=== PATIENT | female | born 1950 | race Caucasian/White ===

== ENCOUNTER → 2018-02-09 | Outpatient (CLI) | payer OTHER ==
[~2018-02-09] VITALS: Ht 172.7 cm; Wt 108.4 kg
[~2018-02-09] MED LIST: ATIVAN1 MG PO; DICLOFENAC SODI25 MG PO; IMDUR 30 MG TAB30 M1 PO; LISINOPRIL20 MG PO; METFORMIN HCL500 MG PO; VICTOZA0.6 MG/0.1 SUBQ
--- NOTE | ~2018-02-09 | CATHLAB ---
[facility] [address] [place] [address] INVASIVE PROCEDURE REPORT Name: FRANCINE TORRES Room #: REG Mackenzie#: [id number] Admission: 02/09/18 Attend Phys: Roberto Lopez Discharge: Date of : 46 Date of Service: 02/11/18 1236 Report #: [id number] THIS REPORT FOR: //name// APPROVED REPORT Study performed: 02/09/2018 09:15:42 Patient Details Patient Status: Out-Patient Room #: The patient is a 67 year-old female Event Personnel Roberto Mackenzie Electrician Constructor Supervisor, Laura May RN RN, Chetna Oconnor Procedures Performed Left Heart Cath w/or w/o Coronaries [id number] [place] supervision of conscious sedation Indication Chest pain Procedure Narrative The Right Groin^ was infiltrated with 1% Lidocaine subcutaneous anesthesia. A PINNACLE 4FR Sheath #[id number] sheath was inserted into the RFA^. Coronary angiography was performed using coronary diagnostic catheters. The right coronary system was accessed and visualized with a JR4 catheter. The left coronary system was accessed and visualized with a JL4 catheter. The left ventricle was accessed and visualized with a PIGTAIL catheter. Left ventricular/Aortic Valve gradient assessed via catheter pullback. Left ventriculogram was performed in 30 degree projection. Hemostasis was obtained with manual pressure following sheath removal without any complications. There was no hematoma. Intraoperative Conscious Sedation Sedation start time: 12.35 Case end Time: 1.04 Versed 2 mg Fluoro Time: 3.27 minutes Dose: DAP 4724 cGycm2 558 mGy Contrast Type and Amount: Omnipaque 50 ml Coronary Angiography [facility] [address] [place] [address] INVASIVE PROCEDURE REPORT Name: FRANCINE TORRES Room #: REG CL Mackenzie#: [id number] Admission: 02/09/18 Attend Phys: Roberto Lopez Discharge: Date of : 46 Date of Service: 02/11/18 1236 Report #: [id number] The patient's coronary anatomy is right dominant. Diagnostic Cath Left Main Moderate to large caliber vessel long length bifurcates into left anterior descending left circumflex and is free of high-grade disease LAD Moderate caliber type II vessel which courses quite tortuously in the anterior interventricular sulcus terminating as a small caliber vessel at the apex. He gives her to septal and diagonal branches in its course Diagonal 1 Moderate caliber codominant vessel which courses along the anterolateral wall terminating near the apex of the anterolateral ventricle he has luminal irregularities but no high-grade disease identified Circumflex Moderate caliber vessel which has a hairpin origin which has a 30% blockage. Subsequent to the completion of this turned there is a segment of 60% stenosis as it reconstitutes itself along the lateral aspect of the ventricle and tortuous course OM1 Moderate caliber vessel which has significant deformity proximally. The proximal third has moderate lesions and a focal 60-65% lesion which does not appear to be flow-limiting. It is quite tortuous in its course along the lateral aspect of the ventricle Right Coronary Large-caliber vessel of normal origin has a snow's crook deformity proximally. It gives rise to small RV marginal branch is a courses posteriorly to the crux of the heart giving rise to posterior descending artery. It then terminates as a posterior wall branches and a tortuous posterolateral branch only luminal irregularities are noted R PDA Small to moderate caliber vessel with luminal irregularities present Left Ventriculography The left ventricle is normal in size with normal contractility. The left ventricular ejection fraction is estimated to be 65-70%. Left ventricular wall motion abnormalities are not present. Hemodynamics The aortic pressure is 155/68 mmHg with a mean of 79 mmHg. The left ventricular pressure is 149/12 mmHg with a mean of mmHg. The left ventricular end diastolic pressure is 25 mmHg. There was no gradient across the aortic valve upon pullback. Pullback from the left ventricle to the aorta revealed no gradient across the aortic valve. [facility] [address] [address] INVASIVE PROCEDURE REPORT Name: BRIANFRANCINEIKER SHEPPARD Room #: REG CL Mackenzie#: [id number] Admission: 02/09/18 Attend Phys: Roberto Lopez Discharge: Date of : 46 Date of Service: 02/11/18 1236 Report #: [id number] Conclusion 1. Coronary artery disease moderate single-vessel consisting of the proximal circumflex. Highly tortuous proximal circumflex anatomy noted 2. Abnormal hemodynamics with elevated liver ventricular end-diastolic pressures 3. Normal left ventricular contractility Recommendations Cardiac Risk Reduction Program Aggressive Medical Therapy <ELECTRONICALLY SIGNED> By: Roberto Mackenzie MD 02/11/18 1236 1236 1236 Roberto Mackenzie MD /INF
[2018-02-09 10:21] VITALS: BP 128/51
== END | disposition home or self-care (01) ==
LOC: CATH 06:25
DX: I25.10 Atherosclerotic heart disease of native coronary artery without angina pectoris (principal); I11.0 Hypertensive heart disease with heart failure; I50.1 Left ventricular failure, unspecified; E78.5 Hyperlipidemia, unspecified; E11.9 Type 2 diabetes mellitus without complications; F41.9 Anxiety disorder, unspecified; E66.09 Other obesity due to excess calories; Z90.49 Acquired absence of other specified parts of digestive tract; Z98.84 Bariatric surgery status; Z90.710 Acquired absence of both cervix and uterus; Z98.890 Other specified postprocedural states; Z79.899 Other long term (current) drug therapy; Z82.49 Family history of ischemic heart disease and other diseases of the circulatory system; Z91.040 Latex allergy status

== ENCOUNTER 2018-08-26 13:48 | Inpatient (IN) | payer OTHER ==
[~2018-08-26] VITALS: Ht 175.3 cm; Wt 97.5 kg
--- NOTE | ~2018-08-26 | P ---
[facility] [place] [address] [place] [address] PROCEDURE REPORT Name: FRANCINE TORRES Room #: 207-P ADM IN M.R.#: [id number] Admission: 08/26/18 ������������������ Attend Phys: Flora Larkin Discharge: ������������������ Date of : 46 Report #: [id number] THIS REPORT FOR: //name// CC: Flora Houston PROCEDURE: Pacemaker implantation. PREOPERATIVE DIAGNOSES: 1. Syncope. 2. Sick sinus syndrome. 3. Asystole. HISTORY: The patient is a 68-year-old with history of coronary artery disease and mild aortic stenosis with recent presyncopal symptoms, who wore monitoring manager and had a 10-second pause secondary to sinus arrest with associated syncope. She had an echocardiogram prior to the pacemaker and showed normal LV size and function with mild aortic stenosis. She is here for dual chamber pacemaker implantation. ANESTHESIA: The patient underwent MAC anesthesia, no anesthesia-related complications. DESCRIPTION OF PROCEDURE: The patient underwent informed consent. We discussed the details of the procedure including the risk, which include, but not limited to bleeding, infection, cardiac perforation and pneumothorax. She understood these risks and is willing to proceed. The patient was brought to EP Laboratory in a fasting and sedated state, prepped and draped in a sterile fashion, received IV antibiotics and a venogram showing patency of the left axillary vein. Next, lidocaine was injected below the level of left clavicle. Incision was made, pocket was created over the prepectoral fascia and access was obtained twice to the left axillary vein using the extrathoracic approach with sheaths positioned using the modified Seldinger technique. Next, under fluoroscopy, leads were positioned in right ventricular mid septum and the right atrial appendage both with adequate pacing and sensing thresholds. The leads were sutured to the prepectoral fascia and device was connected. The device was placed in the pocket. The pocket was irrigated with vancomycin. The pocket was closed in 2 layers using 2-0 for the deep layer, 3-0 for the mid layer and surgical glue for the outer skin layer. The patient awoke neurologically and hemodynamically intact. No complications and no significant bleeding. The implanted pacemaker was a [employer], model #2272 MRI compatible device, serial #[id number]. The atrial lead was a [employer] model #2088TC 52 cm, serial #[id number] with a P-wave of 1.6 millivolts, pacing impedance of 440 ohms and the pacing threshold of 1.25 volts at 0.4 milliseconds. The RV lead was a [employer] model #2088 58 cm, serial #[id number] with a R-wave of 11.8 millivolts, pacing impedance of 530 ohms and [facility] [address] [place] [address] PROCEDURE REPORT Name: FRANCINE TORRES Room #: 207-P [facility] IN M.R.#: [id number] Admission: 08/26/18 ������������������ Attend Phys: Flora Larkin Discharge: ������������������ Date of : 46 Report #: [id number] the pacing threshold of 1 volt at 0.4 milliseconds. The device was programmed to the DDDR 60-130 mode. CONCLUSIONS: 1. Successful dual-chamber pacemaker implantation. 2. Satisfactory atrial and ventricular pacing and sensing thresholds. ��������������������������������������������� ���������������������������������������� By: ��������������������������������������������� 1635 0138 Blair Mcbride MD /nt
[2018-08-26 14:00] VITALS: BP 154/86
[2018-08-26 15:10] VITALS: BP 154/86
--- NOTE | 2018-08-26 15:10 | 2DMMODE ---
[facility] [place] [address] 2 D/M-MODE ECHOCARDIOGRAM Name: FRANCINE TORRES Room #: PRE [facility]..#: [id number] ������������� Admission: ������������� Attend Phys: Discharge: ��� ������������� ��� Date of : 46 Date of Service: 08/26/18 1510 �� Report #: [id number] �������� ��������������������������������������������[id number] THIS REPORT FOR: //name// APPROVED REPORT Study performed: 08/26/2018 14:40:13 EXAM: Comprehensive 2D, Doppler, and color-flow Echocardiogram Patient Location: ER Room #: 9 BSA: 2.21 HR: 59 bpm BP: 132/69 mmHg Other Information Study Quality: Technically Difficult Technically limited study due to body habitus, inability to position patient, broken ribs. Indications Syncope Changed to limited echo with doppler per. Dr. Mcbride 2D Dimensions IVSd: 10.72 (7-11mm) LVOT Diam: 18.25 (18-24mm) LVDd: 39.31 mm PWd: 10.46 (7-11mm) LVDs: 24.46 (25-40mm) Aortic Root: 24.98 mm Aortic Valve AoV Peak Jack.: 2.21 m/s AO Peak Gr.: 19.59 mmHg LVOT Max P.19 mmHg AO Mean Gr.: 9.88 mmHg AO V2 Mean: 1.41 m/s LVOT Max V: 1.02 m/s AO V2 VTI: 48.78 cm AINSLEY Vmax: 1.21 cm2 Left Ventricle The left ventricle is normal size. Borderline concentric left ventricular hypertrophy. The left ventricular systolic function is normal. The left ventricular ejection fraction is within the normal range. LVEF is 55%. [facility] [address] [address] 2 D/M-MODE ECHOCARDIOGRAM Name: FRANCINE TORRES Room #: [facility].#: [id number] ������������� Admission: ������������� Attend Phys: Discharge: ��� ������������� ��� Date of : 46 Date of Service: 08/26/18 1510 �� Report #: [id number] �������� ��������������������������������������������[id number] Right Ventricle The right ventricle is normal size. The right ventricular systolic function is normal. Aortic Valve Aortic valve is moderately calcified. No aortic regurgitation is present. There is mild to moderate valvular aortic stenosis. Calculated aortic valve area is 1.2 cm2 with maximum pressure gradient of 19.6 mmHg and mean pressure gradient of 10 mmHg. Mitral Valve Mild mitral annular calcification. There is no mitral valve regurgitation noted. Tricuspid Valve The tricuspid valve is normal in structure. Great Vessels The aortic root is normal in size. Pericardium There is no pericardial effusion. <Conclusion> The left ventricle is normal size. Borderline concentric left ventricular hypertrophy. The left ventricular systolic function is normal. The left ventricular ejection fraction is within the normal range. LVEF is 55%. Aortic valve is moderately calcified. There is mild to moderate valvular aortic stenosis. Calculated aortic valve area is 1.2 cm2 with maximum pressure gradient of 19.6 mmHg and mean pressure gradient of 10 mmHg. There is no pericardial effusion. ��������������������������������������������� <ELECTRONICALLY SIGNED> ���������������������������������������� By: Blair Mcbride MD ��������������������������������������������� 08/26/181509 09 09 Blair Mcbride MD /INF
[2018-08-26 15:58] LABS: ABSOLUTE NEUTROPHILS 3.5 thou/uL (1.4-8.2); BASOPHILS 0.7 % (0.0-2.0); EOSINOPHILS 2.1 % (0.0-3.0); HEMATOCRIT 39.3 % (37.0-47.0); HEMOGLOBIN 13.1 gm/dL (12.0-15.0); MCH 32.1 pg (26.0-34.0); MCHC 33.3 g/dL (28.0-37.0); MCV 96.5 fL (80.0-100.0); MONOCYTES 7.8 % (1.0-8.0); PLATELET COUNT 152 thou/uL (150-400); POLYS 62.4 % (36.0-66.0); RBC 4.08 mil/uL (4.20-5.00); RDW 13.6 % (10.5-14.5); WBC 5.5 thou/uL (4.0-11.0)
[2018-08-26 16:07] LABS: CALCIUM 8.7 mg/dL (8.5-10.1); CREATININE 0.8 mg/dL (0.6-1.0); POTASSIUM 4.1 mmol/L (3.5-5.1)
[2018-08-26 16:12] LABS: PROTIME 10.9 Seconds (9.3-11.4)
--- NOTE | 2018-08-26 17:59 | NUR ---
PATIENT ADMITTED TO ROOM AT THIS TIME. SHE IS ALERT ORIENTED X4. INCISION TO CHEST IS NOT BLEEDING. OPEN TO AIR. STATES SHE IS COLD AND WARM BLANKET OFFERED. WILL CONT WITH PLAN OF CARE.
[2018-08-26] MEDS ORDERED: CRESTOR10 MG PO (19:42)
[2018-08-26] MEDS ORDERED: PLAVIX 75 MG TA75 M1 PO (19:43)
[2018-08-26 20:00] VITALS: BP 161/72
[2018-08-27] VITALS: BP 117/42
[2018-08-27 03:51] VITALS: BP 92/50
--- NOTE | 2018-08-27 05:57 | NUR ---
ASSESSMENT DOCUMENTED.PT BEEN RESTING IN NO ACUTE DISTRESS.A/OX4.S/P PACEMAKER PLACEMENT.UP TO BSC COMMOND WITH SBA.IMMOBILIZER IN PLACE.INCISIONS TO LEFT INTACT,WITH SOME BRUISING.N/V AT THE BEGINNING OF THE SHIFT,NAUSEA MEDS AND GAS MEDS GIVEN WITH COMPLETE RELIEF.NO OTHER CONCERNS VOICED AT THIS TIME.POC IS TO HAVE CX RAY THIS AM THEN POSSIBLE DISCHARGE TO HOME.
[2018-08-27 05:58] LABS: ABSOLUTE NEUTROPHILS 6.6 thou/uL (1.4-8.2); BASOPHILS 0.2 % (0.0-2.0); EOSINOPHILS 0.6 % (0.0-3.0); HEMATOCRIT 38.8 % (37.0-47.0); HEMOGLOBIN 12.9 gm/dL (12.0-15.0); LYMPHOCYTES 15.4 % (24.0-44.0); MCH 32.2 pg (26.0-34.0); MCHC 33.3 g/dL (28.0-37.0); MCV 96.6 fL (80.0-100.0); MONOCYTES 7.8 % (1.0-8.0); PLATELET COUNT 149 thou/uL (150-400); RBC 4.02 mil/uL (4.20-5.00); RDW 13.3 % (10.5-14.5); WBC 8.7 thou/uL (4.0-11.0)
[2018-08-27 06:11] LABS: CREATININE 0.9 mg/dL (0.6-1.0); MAGNESIUM 1.8 mg/dL (1.8-2.4); POTASSIUM 4.8 mmol/L (3.5-5.1)
[2018-08-27 08:41] VITALS: BP 138/46
[2018-08-27 10:20] VITALS: BP 138/46
--- NOTE | 2018-08-27 10:56 | NUR ---
PATIENT CARE ASSUMED, ASSESSMENT CHARTED, VSS, ALERT AND ORIENTED, UPPER LEFT CHEST PACEMAKER INCISION, DRY AND WELL APPROXIMATED. PATIENT DISCHARGED TO HOME. DISCHARGE INSTRUCTIONS DISCUSSED, PATIENT STATES UNDERSTANDING.
--- NOTE | 2018-08-27 11:03 | EKG ---
[address] [place] [address] ELECTROCARDIOGRAM REPORT Name: FRANCINE TORRES Room #: 207-P ADM IN M.R.#: [id number] ������������������ Admission: 08/26/18 ������������������ Attend Phys: Flora Larkin Discharge: ������������������ Date of : 46 Report #: [id number] ����������������������������������������������������������������� [id number] THIS REPORT FOR: //name// [facility] ED Test Date: 2018-08-26 Test Time: 14:09:47 Pat Name: FRANCINE TORRES Department: Room: 207 P Gender: F Run Lead: NINO : 1950 Requested By: Carla Ghosh Order Number: [id number] MD: Raheem Dee Measurements Intervals [place] Rate: 52 P: 34 NH: 203 QRS: 54 QRSD: 96 T: 38 QT: 402 QTc: 374 Interpretive Statements Sinus rhythm Ventricular premature complex Compared to ECG 02/25/2004 17:47:39 Ventricular premature complex(es) now present Electronically Signed On 08-27-2018 11:03:10 CDT by Raheem Dee [email or web address] ��������������������������������������������� <ELECTRONICALLY SIGNED> ���������������������������������������� By: Raheem Dee MD ��������������������������������������������� 08/27/18 1103 1409 1409 MD YOKO Narayan
--- NOTE | 2018-08-28 09:08 | D ---
[facility] [place] [address] DISCHARGE SUMMARY Name: FRANCINE TORRES Room #: 207-P [facility] IN M.R.#: [id number] Admission: 08/26/18 ������������������ Attend Phys: Flora Larkin Discharge: 08/27/18 ������������������ Date of : 46 Report #: [id number] THIS REPORT FOR: //name// CC: Flora Houston DATE OF SERVICE: 08/27/2018 FINAL DIAGNOSES: 1. Syncope/sick sinus syndrome. 2. Status post pacemaker insertion. 3. Coronary artery disease. 4. Diabetes mellitus. 5. Hypertension. 6. Hypercholesterolemia. HOSPITAL COURSE: The patient presented with syncope, commuter pilot revealed a 10-second pause with asystole. She underwent insertion of a permanent pacemaker by Dr. Mcbride. She remained stable overnight. She offers no complaints of angina or dyspnea. She is stable for discharge. Instructions regarding her pacemaker insertion have been given. FINAL DISPOSITION: Continue with Crestor 10 mg daily, Plavix, lisinopril 40 mg, metformin, Victoza and isosorbide. She is scheduled for followup appointments. ��������������������������������������������� <ELECTRONICALLY SIGNED> ���������������������������������������� By: Raheem Dee MD ��������������������������������������������� 08/28/18 0908 0955 1221 Raheem Dee MD /nt
== END 2018-08-27 11:46 | disposition home or self-care (01) | DRG 242 ==
LOC: ER 13:48 → EROBS 14:40 → 2N 18:04 → ENTRNSPT 08-27 11:12 → 2N 08-27 11:46
PROVIDERS: Nurse Practitioner; Student in an Organized Health Care Education/Training Program; ADMIT Hospitalist
DX: I49.5 Sick sinus syndrome (principal); I46.9 Cardiac arrest, cause unspecified; I10 Essential (primary) hypertension; E78.5 Hyperlipidemia, unspecified; E11.9 Type 2 diabetes mellitus without complications; F41.9 Anxiety disorder, unspecified; E66.9 Obesity, unspecified; Z96.651 Presence of right artificial knee joint; I49.9 Cardiac arrhythmia, unspecified; I25.10 Atherosclerotic heart disease of native coronary artery without angina pectoris; I35.0 Nonrheumatic aortic (valve) stenosis; I49.3 Ventricular premature depolarization; E78.00 Pure hypercholesterolemia, unspecified; K58.9 Irritable bowel syndrome, unspecified; Z68.31 Body mass index [BMI] 31.0-31.9, adult; Z90.49 Acquired absence of other specified parts of digestive tract; Z95.1 Presence of aortocoronary bypass graft; Z90.710 Acquired absence of both cervix and uterus; Z91.040 Latex allergy status; Z79.899 Other long term (current) drug therapy
CPT/HCPCS: 10081; 62110; 62900; 70005

== ENCOUNTER → 2018-09-21 | Outpatient (CLI) | payer OTHER ==
[~2018-09-21] MED LIST changes: +CRESTOR10 MG PO; +PLAVIX 75 MG TA75 M1 PO
== END ==
LOC: ULTRA 12:50
DX: I65.23 Occlusion and stenosis of bilateral carotid arteries (principal)

== ENCOUNTER → 2018-12-20 | Outpatient (CLI) | payer OTHER ==
[~2018-12-20] MED LIST changes: +CIPRO500 M1 PO; +METRONIDAZOLE500 M4 PO
[2018-12-20 13:18] LABS: ALBUMIN 3.4 g/dL (3.4-5.0); CALCIUM 9.5 mg/dL (8.5-10.1); POTASSIUM 4.7 mmol/L (3.5-5.1); TOTAL BILIRUBIN 0.6 mg/dL (<0.1-1.0); TOTAL PROTEIN 6.2 g/dL (6.4-8.2)
== END ==
LOC: MRI 12:23
PROVIDERS: Psychiatry & Neurology Neurology
DX: I65.21 Occlusion and stenosis of right carotid artery (principal)

== ENCOUNTER → 2018-12-28 | Outpatient (CLI) | payer OTHER | LOC: MRI 06:48 | DX: S43.431A Superior glenoid labrum lesion of right shoulder, initial encounter (principal); M19.011 Primary osteoarthritis, right shoulder; M25.411 Effusion, right shoulder; M75.91 Shoulder lesion, unspecified, right shoulder; X58.XXXA Exposure to other specified factors, initial encounter; Y93.89 Activity, other specified; Y92.89 Other specified places as the place of occurrence of the external cause; Y99.8 Other external cause status ==

== ENCOUNTER 2019-01-18 12:35 | Inpatient (IN) | payer OTHER ==
[~2019-01-18] VITALS: Ht 172.7 cm; Wt 109.8 kg
--- NOTE | ~2019-01-18 | D ---
[facility] [address] DISCHARGE SUMMARY Name: FRANCINE TORRES Yan Room #: 433-I [facility].#: [id number] Admission: 01/18/19 Attend Phys: Aime Houston MD Discharge: 01/22/19 Date of : 46 Report #: [id number] THIS REPORT FOR: //name// CC: Brett Guerra DATE OF SERVICE: 01/22/2019 SUMMARY OF HISTORY AND PHYSICAL: The patient had lower abdominal pain on 01/05 and was diagnosed as having diverticulitis/colitis in an Emergency Room visit at an outside hospital. She took metronidazole 500 mg 4 times a day for 10 days without improvement in her symptoms. She presented to my office with a steady increasing, chronic, persistent pain in the left lower quadrant and the inability to pass stool. Because of her ongoing pain and inability to pass stools, admission for complete evaluation and fluid replacement with IV fluids and IV medications was indicated. SUMMARY OF HOSPITAL COURSE: She was admitted and found to have acute diverticulitis and colitis on CT scanning of her abdomen and pelvis on admission. She was seen in GI consultation, and clear liquids with bowel rest and intravenous ciprofloxacin as well as intravenous metronidazole were recommended. Her inability to have bowel movement was felt to be caused by the colon narrowing caused from the colitis. She slowly improved and after the third day began to have bowel movements. The next day, she was able to tolerate a regular diet and discharge was arranged. On admission, her verapamil was discontinued because it was a potential contributor to her severe constipation. She reports that she began to have recurrence of dizziness that had been absent since her neurologist started her on verapamil about a month ago. Her blood sugars were only mildly elevated in the hospital. The day before discharge, she had several large bowel movements and refused to take the scheduled MiraLax. However, when Dr. Manjarrez came to see her the next day, he recommended that she continue taking some MiraLax every day to keep her bowel movements coming easily, and she agreed. Her Plavix was resumed in the hospital. LABORATORY DATA: Her creatinine remained at 0.9 and 0.6. Her albumin was 2.5 after rehydration, qualifying for severe malnutrition. CRP was elevated at 58.7 on admission and went up to 97 the day of discharge. Sed rate was 25 on admission and 55 at discharge. Hemoglobin A1c was 7.1. [address] [address] DISCHARGE SUMMARY Name: FRANCINE TORRES Room #: 433-I [facility].#: [id number] Admission: 01/18/19 Attend Phys: Aime Houston MD Discharge: 01/22/19 Date of : 46 Report #: [id number] WBCs were 9.6 on admission and dropped to 4.1 thousand at discharge. Hemoglobin was 12.5 on admission and stable at 10.6 at discharge. There were 77.7% neutrophils present on admission. IMAGING: CT scan of the abdomen and pelvis was most notable for the presence of diverticulitis and generalized colitis, most marked in the ascending colon. Also noted was diffuse osteopenia with severe degenerative changes of the thoracolumbar spine and age indeterminate compression fractures with koxukuqv-qo-zglvgn central canal stenosis at L4-L5. A previous gastric bypass surgery was noted. There were age indeterminate right lateral and posterior rib fractures. DISCHARGE DIAGNOSES: 1. Colitis and diverticulitis, either recurrent or incompletely treated from previous episode on 01/05. 2. Dehydration. 3. Criteria met for severe malnutrition. 4. CT scanning showed qwiyargb-tr-aozzpf central canal stenosis at L4-L5. 5. Multiple compression fractures of the T9 through T11 vertebral bodies. 6. Old rib fractures. 7. Changes of a gastric bypass surgery. 8. Dizziness, improved significantly with the addition of verapamil several weeks ago by her neurologist. 9. Migraine headaches, improved significantly with the addition of Depakote by her neurologist several weeks ago. 10. Type 2 diabetes. 11. Hyperlipidemia. 12. On clopidogrel for coronary artery disease. 13. Hypertension. 14. Diffuse severe arthritis. 15. S/P permanent pacemaker placement for sick sinus syndrome on 09/25/2018. PLAN: The patient is returning is returning home on an as tolerated diet. Cipro 500 mg twice daily for 10 days and metronidazole 500 mg 4 times daily for 10 days to complete her course for treatment of the colitis. She is to follow up with Dr. Manjarrez in 1 to 2 weeks. She is to have a colonoscopy in 4 to 6 weeks and to discontinue her Plavix 5 days or longer beforehand. She is to continue MiraLax, at least some every day, to keep her bowels moving. [address] [address] DISCHARGE SUMMARY Name: FRANCINE TORRES Room #: 433-I [facility].#: [id number] Admission: 01/18/19 Attend Phys: Aime Houston MD Discharge: 01/22/19 Date of : 46 Report #: [id number] Other than that, her home medications are to remain unchanged from what they were on admission. By: [id number] 2256 Aime Houston MD /marija
[~2019-01-18 12:35] MED LIST changes: -CIPRO500 M1 PO; -METRONIDAZOLE500 M4 PO
--- NOTE | 2019-01-18 13:05 | NUR ---
PT ARRIVED FROM DR SALGADO'S OFFICE ALER XS 4. AT6 THIS TIME.
[2019-01-18 13:28] VITALS: BP 100/49
--- NOTE | 2019-01-18 13:47 | NUR ---
CALLED DR SALGADO FOR GI CONSULT HE IS WITH PATIENT WILL RETURN CALL IS WITH PATIENT. PT IS NPO, WILL HAVE KUB. PT ALERT XS 4 WILL HAVE IV PLACED BY IV NURSE. AT BEDSIDE.
[2019-01-18 14:17] LABS: ABSOLUTE NEUTROPHILS 7.4 thou/uL (1.4-8.2); BASOPHILS 0.4 % (0.0-2.0); EOSINOPHILS 0.7 % (0.0-3.0); HEMATOCRIT 38.5 % (37.0-47.0); HEMOGLOBIN 12.5 gm/dL (12.0-15.0); LYMPHOCYTES 11.4 % (24.0-44.0); MCHC 32.5 g/dL (28.0-37.0); MCV 98.6 fL (80.0-100.0); MONOCYTES 9.8 % (1.0-8.0); PLATELET COUNT 182 thou/uL (150-400); POLYS 77.7 % (36.0-66.0); RBC 3.91 mil/uL (4.20-5.00); WBC 9.6 thou/uL (4.0-11.0)
[2019-01-18 14:37] LABS: ALBUMIN 3.1 g/dL (3.4-5.0); CALCIUM 9.1 mg/dL (8.5-10.1); CREATININE 0.9 mg/dL (0.6-1.0); POTASSIUM 4.5 mmol/L (3.5-5.1); TOTAL BILIRUBIN 0.6 mg/dL (<0.1-1.0); TOTAL PROTEIN 6.5 g/dL (6.4-8.2)
[2019-01-18 17:14] VITALS: BP 139/68
[2019-01-18 20:26] VITALS: BP 96/30
[2019-01-19 03:06] VITALS: BP 122/46
--- NOTE | 2019-01-19 03:58 | NUR ---
Assumed pt care at 1900.A/OX4,VSS. Up with SBA to bathroom,c/o cramping abd pain and right upper arm especially with movement medicated per EMAR with relief reported. Dr. Houston rounded on pt at HS orders implemented. Fall precautions in place and pt calling appropriately. IVF infusing without problems. Pt resting quietly with no distress will continue to monitor pt.
[2019-01-19 05:22] LABS: ABSOLUTE NEUTROPHILS 6.1 thou/uL (1.4-8.2); BASOPHILS 0.6 % (0.0-2.0); EOSINOPHILS 1.7 % (0.0-3.0); HEMATOCRIT 32.5 % (37.0-47.0); HEMOGLOBIN 10.6 gm/dL (12.0-15.0); LYMPHOCYTES 10.6 % (24.0-44.0); MCH 32.3 pg (26.0-34.0); MCHC 32.6 g/dL (28.0-37.0); MONOCYTES 11.9 % (1.0-8.0); PLATELET COUNT 142 thou/uL (150-400); POLYS 75.2 % (36.0-66.0); RBC 3.28 mil/uL (4.20-5.00); RDW 13.9 % (10.5-14.5); WBC 8.1 thou/uL (4.0-11.0)
[2019-01-19 05:35] LABS: ALBUMIN 2.5 g/dL (3.4-5.0); CALCIUM 8.2 mg/dL (8.5-10.1); CREATININE 0.8 mg/dL (0.6-1.0); POTASSIUM 4.2 mmol/L (3.5-5.1); TOTAL BILIRUBIN 0.7 mg/dL (<0.1-1.0); TOTAL PROTEIN 5.6 g/dL (6.4-8.2)
[2019-01-19 07:09] LABS: GLYCOHEMOGLOBIN (HGB A1C) 7.1 % (4.8-5.6)
[2019-01-19 07:26] VITALS: BP 127/44
--- NOTE | 2019-01-19 16:15 | NUR ---
ASSESSMENT-PT LIVES AT HOME WITH HER WHO IS 2 YRS OLDER THAN SHE. THEY LIVE IN A HANDICAPPED ACCESSIBLE HOME. THEY HAVE A WALK IN TUB AND PT WALKS ON HER OWN. THEY BOTH DRIVE. THEY HAVE A SON THAT LIVES 3 TENTHS OF A MILE FROM THEM. FOLLOWING TO ASSIST WITH DC PLANNING.
[2019-01-19 17:53] VITALS: BP 140/68
[2019-01-19 18:08] VITALS: BP 128/74
[2019-01-19 18:58] VITALS: BP 133/71
--- NOTE | 2019-01-19 19:52 | NUR ---
ASSUMED CARE OF PATIENT AT 0715, PATIENT ALERT AND ORIENTED X 4. PATIENT UP WITH ASSIST X 1 TO BATHROOM. PATIENT DENIES PAIN THIS AM, BUT C/O PAIN WITH ABDOMEN THIS AFTERNOON. NEW ORDER FOR TYLENOL 650MG PO GIVEN WITH COMPLETE RELIEF. PACEMAKER PLACED IN AUGUST. PATIENT IS A FALL RISK, FELL 4 WEEKS AGO, RIGHT HUMERUS BROKEN, SLING NOT IN PLACE. NO BM TODAY, LOTS OF GAS, RECEIVED MIRALAX THIS AM. PATIENT HAS RIGHT FOREARM IV WITH NS AT 80CC/HR, PATIENT STARTED FLAGYL AND CIPRO IV THIS AFTERNOON. WILL CONTINUE TO MONITOR.
--- NOTE | 2019-01-20 04:38 | NUR ---
ASSUMED CARE OF PT @1900 PT ASSESSED AT START OF SHIFT. A&OX4 DENIES PAIN DURING ASSESSMENT WAS LATER GIVEN HYDROCODONEX1 AFTERMIDNIGHT. UP WITH SBA TO THE BR. NEW IV INSERTED 22G IN RT WRIST. OLD IV WAS SORE. PT STILL ON CLEAR LIQUID AND LAZARUS IT WELL. FALL PREC INPLACE AND WILL CONT WITH POC TILL EOS.
[2019-01-20 05:30] VITALS: BP 125/58
[2019-01-20 15:54] VITALS: BP 146/51
--- NOTE | 2019-01-20 19:27 | NUR ---
ASSUMED CARE OF PATIENT AT 0715, PATIENT ALERT AND ORIENTED X 4. PATIENT UP WITH SBA TO BSC. PATIENT C/O PAIN WITH ABDOMEN AREA, RECEIVED HYDROCODONE 1 TABLET AND TYLENOL 650 MG X 1 THIS SHIFT. PATIENT CONTINUES TO C/O CONSTIPATION, GI SAW THE PATIENT AND ORDERED COLACE BOMB, BUT PATIENT STATES SHE IS UNABLE TO HOLD SOLUTION IN, THIS RN NOTIFIED DR REIS OF PATIENT NOT TAKING THE ENEMA, SHE STATED THE PATIENT TOLD HER THAT WELL, NEW ORDER FOR BISACODYL SUPP. ORDERED AND MIRALAX Q6HRS SCHEDULED. PATIENT HAS RIGHT HAND IV WITH NS AT 80CC/HR, RECEIVED 2 IV ANTIBIOTICS THIS SHIFT. PATIENT WANTED TO WAIT ON BISACODYL UNTIL AFTER MIRALAX WORKS. WILL CONTINUE TO MONITOR.
[2019-01-20 19:45] VITALS: BP 116/42
--- NOTE | 2019-01-21 07:28 | NUR ---
PATIENT ALERT AND ORIENTED X4. UP TO BSC W/O ASSIST. EXPLAINED TO PATIENT NOT TO GO TO THE BATHROOM BY HERSELF. IVF INFUSING W/O COMPLICATION ALONG WITH IVPB'S. DENIES PAIN. STOOL SAMPLE SENT THIS AM. PATIENT REFUSED SUPPOSITORY, HOWEVER, SHE IS TAKING MIRILAX SCHEDULED PO AND HAD A SMALL BM LAST NIGHT. ALSO HAD LIQUID STOOL - GREEN/BROWN IN COLOR. WILL MONITOR.
[2019-01-21 08:23] VITALS: BP 144/56
--- NOTE | 2019-01-21 13:03 | NUR ---
PT A&OX4. IV PLACED IN R FA INFUSING CONT FLUIDS / ANTIBIOTICS W/O COMPS. AMBULATES WITH STAND BY ASSIST. TOLERATING CLEARS, REPORTS NO N/V. PT ASKING FOR FULL LIQUID DIET. DAUGHTER VISITING AT THIS TIME. WILL CONT POC.
[2019-01-21 17:14] VITALS: BP 130/64
[2019-01-21 19:35] VITALS: BP 133/68
[2019-01-22 03:10] VITALS: BP 129/60
--- NOTE | 2019-01-22 04:08 | NUR ---
PATIENT ALERT AND ORIENTED X4. MEDICATED FOR HEADACHE WITH GOOD RESULTS. IVF INFUSING W/O COMPLICATION. REFUSED MIRILAX. BS MONITORED PER ORDER. COOPERATIVE WITH CARE. RESTING QUIETLY. WILL MONITOR.
[2019-01-22 05:30] LABS: HEMATOCRIT 32.1 % (37.0-47.0); HEMOGLOBIN 10.6 gm/dL (12.0-15.0); MCH 32.3 pg (26.0-34.0); MCHC 32.9 g/dL (28.0-37.0); RBC 3.28 mil/uL (4.20-5.00); RDW 13.6 % (10.5-14.5); WBC 4.1 thou/uL (4.0-11.0)
[2019-01-22 05:41] LABS: CREATININE 0.6 mg/dL (0.6-1.0); POTASSIUM 4.1 mmol/L (3.5-5.1)
[2019-01-22 08:33] VITALS: BP 150/77
[2019-01-22] MEDS ORDERED: CIPRO500 M1 PO (12:55)
[2019-01-22] MEDS ORDERED: METRONIDAZOLE500 M4 PO (13:03)
--- NOTE | 2019-01-22 13:21 | NUR ---
PATIENT LEFT UNIT FOR PRE-OP AT 1300 APPROX. PT TO HAVE APPENDECTOMY.
[2019-01-22 15:07] VITALS: BP 150/77
--- NOTE | 2019-01-22 15:56 | NUR ---
AT 15:20 PATIENT DISCHARGED AT 15:20. IV ACSESS DCD PT W/O PAIN OR RESP DISTRESS AT DISCHARGE. DISCHARGE PAERS GONE OVER WITH PATIENT SIGNED COPY IN CHART. DR SALGADO CALLED RX'S TO PHARMACY. ALL BELONGINGS PACKED AND SENT WITH PATIENT. TO DRIVE HOME.
[2019-01-22 16:01] VITALS: BP 150/77
--- NOTE | 2019-01-22 21:40 | H ---
[facility] [place] [address] HISTORY AND PHYSICAL Name: FRANCINE TORRES Yan Room #: 433-I [facility] IN ..#: [id number] Admission: 01/18/19 Attend Phys: Aime Houston MD Discharge: 01/22/19 Date of : 46 Report #: [id number] THIS REPORT FOR: //name// CC: Aime Houston DATE OF SERVICE: 01/18/2019 CHIEF COMPLAINT: Severe unremitting left lower quadrant abdominal pain and equally severe and unremitting constipation. HISTORY OF PRESENT ILLNESS: The patient relates her current problems as beginning about 12/30/2018 when she went to the [facility] Emergency Room. Today, she told me that her chronic constipation had started to become worse leading up to the ER visit and continued afterwards "they should have admitted me and kept me at that time, but they did not." However, the record for that Emergency Room visit (copy is in the paper chart) that she came to the hospital because of pain around the umbilicus and cramping and multiple watery DIARRHEA stools. She reported taking 1 amoxicillin that she had left over the morning before that ER visit, but no other antibiotics. On that visit, a CT scan was remarkable for mild wall thickening of the proximal sigmoid colon suggesting inflammatory or infectious colitis. Specifically mentioned that there was no evidence of diverticulitis, nor ischemic colitis. The more proximal colon was mildly distended, suggesting mild obstructive changes. Laboratory data was remarkable for mildly elevated white count of 11.9 thousand with a very minimal left shift of 78% neutrophils, and a negative stool for C. diff. Stool for hidden blood was positive. She was reassured after getting 2 liters of IV fluids for her low blood pressure and Zofran and morphine. She was feeling better and discharged on oral metronidazole and Zofran. She completed her course of 500 mg of metronidazole 4 times a day about 4 days ago. She now reports that the entire time she has had more difficulty with constipation and her pain is in the left lower quadrant area. She has a long history of irritable bowel syndrome that is constipation predominant. She ordinarily has to sit on the toilet stool 3 hours or 4 hours to have a bowel movement, which will be needed again for several days. However, now she is having to sit on the toilet stool for 4 or 5 hours at a time with cramping discomfort in the left lower quadrant area before she has a very small thick pasty character like stool. She sits on the toilet stool for so long. She gets cramps and weakness in her legs and has to stand up and stretch her legs out before sitting back down to try to pass a bowel movement. The stools "squared out like toothpaste and thin liquids or paste" and she reports that 6 months ago it was normal semi formed stool. IMPORTANT ARE FOLLOWING MEDICATION CHANGES THAT ARE RECENT: She has been taking more hydrocodone since she sustained a complex nondisplaced fracture of her [facility] [address] [place] [address] HISTORY AND PHYSICAL Name: FRANCINE TORRES Room #: 433-I [facility] IN ..#: [id number] Admission: 01/18/19 Attend Phys: Aime Houston MD Discharge: 01/22/19 Date of : 46 Report #: [id number] right upper humerus and partial rotator cuff tear on 12/16/2018. About 2 weeks ago, her neurologist added verapamil and Depakote ER 250 mg at bedtime for migraine headaches. She has attempted to use Linzess 72 mcg strength one daily for 3 days in a row late last week without success, she then tried metoclopramide 10 mg several times daily and most recently a bottle of magnesium citrate -- all without much success. She presented to the office today tired and chronic consistent pain in the left lower quadrant. She says in tears " desiree and Omayra both of colon cancer that started like this." Her last colonoscopy was about [address] Crowley in [place], [place] she reports. The results were unremarkable and there were no colon polyps. An EGD was done more than 10 years ago. She had gastric bypass surgery for weight loss in 2011, after a failed gastric lap band. OTHER SIGNIFICANT SURGERIES: Appendectomy, cholecystectomy, right total knee, tonsillectomy and hysterectomy. On 08/26/2018, a pacemaker was placed for sick sinus syndrome. Cardiac catheterization on 02/09/2018 gave the diagnosis of coronary artery disease. On 08/26/2018, monitoring tech revealed 10 second pause with asystole and a pacemaker was place here at [facility]. CURRENT MEDICATIONS: Rosuvastatin 10 mg in the evening, clopidogrel 75 mg in the morning, lorazepam 1 mg in the evening, lisinopril 40 mg 1 tablet in the morning, metformin 500 mg 2 tablets at bedtime, diclofenac 50 mg twice daily, Victoza 1.25 mg in the morning daily, isosorbide mononitrate 1 tablet in the morning, verapamil, unknown dose at bedtime, Linzess 72 mcg daily recently. Depakote 250 mg at bedtime. She takes iron, magnesium, 10,000 units of vitamin D, vitamin B, stool softener and CoQ10 300 mg. Her pharmacy is [facility] in [place], [place]. ALLERGIES: ONLY ALLERGY IS TOPICAL TO LATEX, WHICH CAUSES A RASH. REVIEW OF SYSTEMS: Generally positive and unremarkable. OBJECTIVE: PHYSICAL EXAMINATION: GENERAL: In my office and again this evening is a 68-year-old female who is [facility] [address] [place] [address] HISTORY AND PHYSICAL Name: FRANCINE TORRES Yan Room #: 433-I [facility] IN [facility]#: [id number] Admission: 01/18/19 Attend Phys: Aime Houston MD Discharge: 01/22/19 Date of : 46 Report #: [id number] uncomfortable. HEENT: There is mildly dry tongue and oropharynx. NECK: Negative. LUNGS: Clear. ABDOMEN: The abdominal exam has normal bowel sounds and no abnormal organ enlargement or masses. The abdomen is nontender except for point tenderness in the left lower quadrant. There is no rebound present. NEUROLOGIC: Screening neurological examination shows decreased ankle reflexes, and decrease in sensation to light touch and pinprick in the feet. The skin of the feet is intact. LABORATORY DATA: 1. At this point, shows a mildly low albumin of 3.1. Low AST and ALT. Random blood sugar 147. CRP is high at 58.7, but the sed rate is normal at 25. WBCs are 9.6 thousand, hemoglobin was 12.5 and there is a very minimal left shift with 77% segmented neutrophils. 2. CT scanning with IV contrast shows several age indeterminate right rib fractures and the changes of gastric bypass surgery with a small sliding hiatal hernia. No obstruction. There is some fat stranding and bowel wall thickening in the sigmoid colon area. Abnormal mucosal enhancement and bowel wall thickening seen in the ascending colon series 06/06, and the ascending colon series . Ventral wall hernia containing fat is noted. Spinal stenosis is moderate to severe at L4-L5. Wedge compression deformities from T9 through T11. There is no mention of quantity of stool present. ASSESSMENT: 1. Severe persistent left lower quadrant pain. 2. Severe persistent constipation. 3. On 12/30/2018, she suffered from severe persistent diarrhea. 4. Dehydration. 5. Recent medication changes with the addition of verapamil and Depakote at bedtime for control of her migraine headaches may have exacerbated her chronic irritable bowel, constipation predominant. 6. Hemoccult positive stool at recent [facility] evaluation. 7. Recent right proximal humerus nondisplaced fracture with a right rotator cuff tear. 8. Chronic migraines. 9. Diabetes. 10. Hypertension. 11. Sick sinus syndrome on 08/26/2018 with 10 second pause with asystole treated with the placement of a pacemaker on that day. 12. Mild coronary artery disease, on isosorbide mononitrate. 13. Hyperlipidemia. 14. Diabetes. 15. Obesity. 16. Generalized arthritis. 17[place] [address] HISTORY AND PHYSICAL Name: FRANCINE TORRES Room #: 433-I [facility] IN ..#: [id number] Admission: 01/18/19 Attend Phys: Aime Houston MD Discharge: 01/22/19 Date of : 46 Report #: [id number] 18. There is wall thickening suggestive of colitis with possible uncomplicated sigmoid diverticulitis seen on the CT scan of today. 19. Chronic back pain with severe central canal stenosis L4-L5 and wedge compression deformities T9-T11 with multilevel degenerative changes of the thoracolumbar spine. 20.. Asymptomatic fat containing ventral abdominal wall hernia. 21. Distant history of gastric bypass surgery. 22. Very distant history of either cervical or uterine cancer treated with hysterectomy. 23. Long history of constipation predominant irritable bowel. 24. Hemoccult + stool at [facility]. PLAN: The patient is currently comfortable and is getting IV fluids for her dehydration. We are waiting to repeat laboratory tests in the morning and for GI service opinion regarding further management. Lactulose and possibly other laxatives are available and have not been tried yet. The patient currently does have an appointment on WednesdayJanuary 23 at 9 am for a colonoscopy here by Dr. Silvestre, and since her Plavix has been stopped today, the timing is adequate at that time for proceeding with a colonoscopy and EGD. <ELECTRONICALLY SIGNED> By: Aime Houston MD 01/22/192139 [id number] Aime Houston MD /nt
== END 2019-01-22 15:38 | disposition home or self-care (01) | DRG 377 ==
LOC: 4S 12:35
PROVIDERS: ADMIT Internal Medicine
DX: K57.33 Diverticulitis of large intestine without perforation or abscess with bleeding (principal); E43 Unspecified severe protein-calorie malnutrition; M48.54XA Collapsed vertebra, not elsewhere classified, thoracic region, initial encounter for fracture; E86.0 Dehydration; K21.9 Gastro-esophageal reflux disease without esophagitis; D64.9 Anemia, unspecified; K52.9 Noninfective gastroenteritis and colitis, unspecified; I10 Essential (primary) hypertension; M19.90 Unspecified osteoarthritis, unspecified site; I25.10 Atherosclerotic heart disease of native coronary artery without angina pectoris; E78.5 Hyperlipidemia, unspecified; E11.9 Type 2 diabetes mellitus without complications; G43.909 Migraine, unspecified, not intractable, without status migrainosus; I49.5 Sick sinus syndrome; G47.00 Insomnia, unspecified; E66.9 Obesity, unspecified; G89.29 Other chronic pain; M54.9 Dorsalgia, unspecified; M48.061 Spinal stenosis, lumbar region without neurogenic claudication; F41.9 Anxiety disorder, unspecified; Z96.659 Presence of unspecified artificial knee joint; Z98.84 Bariatric surgery status; Z80.0 Family history of malignant neoplasm of digestive organs; Z68.36 Body mass index [BMI] 36.0-36.9, adult; Z95.0 Presence of cardiac pacemaker; Z90.49 Acquired absence of other specified parts of digestive tract; Z90.710 Acquired absence of both cervix and uterus; Z91.040 Latex allergy status; Z23 Encounter for immunization; Z79.899 Other long term (current) drug therapy
CPT/HCPCS: 10102

== ENCOUNTER → 2019-02-20 | Outpatient (CLI) | payer OTHER ==
[~2019-02-20] VITALS: Ht 172.7 cm; Wt 109.3 kg
[~2019-02-20] MED LIST changes: +ATIVAN1 M1 PO; -ATIVAN1 MG PO; +CIPRO500 M1 PO; +DEPAKOTE 250MG250 M1 PO; +DICLOFENAC SOD50 MG PO; +LISINOPRIL40 MG PO; +METRONIDAZOLE500 M4 PO; +VERAPAMIL ER180 M1 PO
--- NOTE | 2019-02-21 13:58 | P ---
[facility] [place] [address] PROCEDURE REPORT Name: BRIANFRANCINE Yan Room #: REG Raciel Mann#: [id number] Admission: 02/20/19 Attend Phys: Jeronimo Jason Discharge: Date of : 46 Report #: [id number] THIS REPORT FOR: //name// CC: Jeronimo Houston MD DATE OF SERVICE: 02/20/2019 PROCEDURE PERFORMED: Upper endoscopy. HISTORY OF PRESENT ILLNESS: The patient is a 68-year-old female with recent hospitalization for diverticulitis and scheduled for EGD and colonoscopy today. She does report some mild heartburn at times. She has had a previous gastric bypass surgery performed. Denies any dysphagia. DESCRIPTION OF PROCEDURE: The risks and benefits of the procedure were explained to the patient, those risks are including, but not limited to, bleeding, perforation, and the risk of sedation. She understood these risks and gave the informed consent. Sedation was given using propofol per anesthesia. Next, using a standard Olympus upper endoscope, the scope was placed in the patient's mouth and advanced under direct vision through the esophagus into the stomach and into the jejunum. The larynx was normal in appearance. The esophagus was normal throughout. The GE junction was normal. No evidence of esophagitis. Surgical changes consistent with gastric bypass, Juan Carlos-en-Y type surgery was noted. The remaining gastric remnant was of normal mucosa. I was able to advance the scope into the jejunum, which was normal. No evidence of ulcerations or erosions. The scope was then withdrawn and the procedure was terminated. The patient tolerated the procedure well. IMPRESSION: 1. Surgical changes consistent with the gastric bypass. 2. Otherwise, normal upper endoscopy. RECOMMENDATIONS: We will proceed with a colonoscopy next today. Thank you for allowing me to participate in her care. <ELECTRONICALLY SIGNED> By: Jeronimo Silvestre MD 02/21/19 [id number] [id number] Jeronimo Silvestre MD /nt
--- NOTE | 2019-02-21 13:58 | P ---
[facility] [place] [address] PROCEDURE REPORT Name: BRIANFRANCINE Yan [id number] Admission: 02/20/19 Attend Phys: Jeronimo Jason Discharge: Date of : 46 Report #: [id number] THIS REPORT FOR: //name// CC: Jeronimo Houston MD DATE OF SERVICE: 02/20/2019 PROCEDURE PERFORMED: Colonoscopy. HISTORY OF PRESENT ILLNESS: The patient is a 68-year-old female who was hospitalized last month for diverticulitis. CT on 01/18/2019 showing abnormal colon, bowel wall thickening consistent with colitis, superimposed uncomplicated sigmoid diverticulitis. The patient was treated with antibiotics. She denies any symptoms at this time. She has a family history of colon cancer in her father and sister. DESCRIPTION OF PROCEDURE: The risks and benefits of the procedure were explained to the patient, those risks including but not limited to bleeding, perforation, the risk of sedation. She understood these risks and gave informed consent. Sedation was given using propofol per anesthesia. Next, a digital rectal exam was initially performed, which was normal. Next, using a standard Olympus colonoscope, the scope was placed in the patient's anus and advanced under direct vision to the cecum. The overall prep was good. The cecum and ileocecal valve were normal in appearance. The ascending, transverse and descending colon were normal. Multiple diverticula were noted in the sigmoid colon, no evidence of inflammation, otherwise normal. The rectal mucosa was normal. On retroflexion, no abnormalities were noted. The scope was then withdrawn and the procedure terminated. The patient tolerated the procedure well. IMPRESSION: 1. Sigmoid diverticulosis. 2. Otherwise, normal colonoscopy. RECOMMENDATIONS: 1. High fiber diet. 2. Repeat colonoscopy in 5 years. Thank you for allowing me to participate in her care. <ELECTRONICALLY SIGNED> By: Jeronimo Silvestre MD 02/21/19 1358 [id number] Jeronimo Silvestre MD /nt
== END | disposition home or self-care (01) ==
LOC: GI 08:37
DX: K57.30 Diverticulosis of large intestine without perforation or abscess without bleeding (principal); I10 Essential (primary) hypertension; E11.9 Type 2 diabetes mellitus without complications; E78.5 Hyperlipidemia, unspecified; E78.00 Pure hypercholesterolemia, unspecified; G43.909 Migraine, unspecified, not intractable, without status migrainosus; Z80.0 Family history of malignant neoplasm of digestive organs; Z98.84 Bariatric surgery status; Z98.890 Other specified postprocedural states; Z79.899 Other long term (current) drug therapy; Z95.0 Presence of cardiac pacemaker; Z90.710 Acquired absence of both cervix and uterus; Z90.49 Acquired absence of other specified parts of digestive tract; Z96.651 Presence of right artificial knee joint; Z91.040 Latex allergy status
CPT/HCPCS: 62110; 62900

== ENCOUNTER → 2019-05-17 | Outpatient (CLI) | payer OTHER | LOC: SJCVC 13:04 | DX: I35.0 Nonrheumatic aortic (valve) stenosis (principal); I25.10 Atherosclerotic heart disease of native coronary artery without angina pectoris; E78.5 Hyperlipidemia, unspecified; I10 Essential (primary) hypertension; I49.5 Sick sinus syndrome; Z90.49 Acquired absence of other specified parts of digestive tract; Z90.710 Acquired absence of both cervix and uterus; Z96.651 Presence of right artificial knee joint; Z79.899 Other long term (current) drug therapy ==

== ENCOUNTER → 2019-05-19 | Outpatient (CLI) | payer OTHER | LOC: SJCVCIMAG 08:54 | DX: I08.0 Rheumatic disorders of both mitral and aortic valves (principal); E11.9 Type 2 diabetes mellitus without complications; Z95.0 Presence of cardiac pacemaker ==

== ENCOUNTER → 2019-11-17 | Outpatient (CLI) | payer OTHER | LOC: SJCVC 09:13 | PROVIDERS: ATTEND Internal Medicine | DX: I35.0 Nonrheumatic aortic (valve) stenosis (principal); I25.10 Atherosclerotic heart disease of native coronary artery without angina pectoris; I10 Essential (primary) hypertension; I49.5 Sick sinus syndrome; E78.5 Hyperlipidemia, unspecified; Z79.899 Other long term (current) drug therapy ==

== ENCOUNTER 2019-12-28 12:26 | Emergency (ER) | payer OTHER ==
[~2019-12-28] VITALS: Ht 172.7 cm; Wt 98.9 kg
[2019-12-28 14:01] LABS: HEMATOCRIT 43.3 % (37.0-47.0); HEMOGLOBIN 14.2 gm/dL (12.0-15.0); MCH 31.4 pg (26.0-34.0); MCHC 32.7 g/dL (28.0-37.0); PLATELET COUNT 194 thou/uL (150-400); RDW 13.8 % (10.5-14.5); WBC 5.6 thou/uL (4.0-11.0)
[2019-12-28 14:09] LABS: CALCIUM 9.3 mg/dL (8.5-10.1); CREATININE 1.3 mg/dL (0.6-1.0); POTASSIUM 5.2 mmol/L (3.5-5.1)
[2019-12-28 14:15] LABS: ALBUMIN 3.1 g/dL (3.4-5.0); TOTAL BILIRUBIN 0.4 mg/dL (0.2-1.0); TOTAL PROTEIN 7.3 g/dL (6.4-8.2)
[2019-12-28 14:20] LABS: ABSOLUTE NEUTROPHILS 3.6 thou/uL (1.4-8.2); ATYPICAL LYMPHS 1 %
[2019-12-28 14:21] LABS: ANISOCYTOSIS 1+; POLYCHROMASIA OCCASIONAL
[2019-12-28] MEDS ORDERED: FLAGYL500 M1 PO (16:29)
[2019-12-28] MEDS ORDERED: TORADOL 10 MG T10 MG PO (16:29)
[2019-12-28] MEDS ORDERED: ONDANSETRON HCL4 M2 PO (16:29)
[2019-12-28] MEDS ORDERED: CIPRO500 M1 PO (16:29)
[2019-12-28 16:52] VITALS: BP 112/78
== END 2019-12-28 16:52 | disposition home or self-care (01) ==
LOC: ER 12:26
PROVIDERS: Physician Assistant
DX: K52.9 Noninfective gastroenteritis and colitis, unspecified (principal); I10 Essential (primary) hypertension; E11.9 Type 2 diabetes mellitus without complications; E78.5 Hyperlipidemia, unspecified; Z90.49 Acquired absence of other specified parts of digestive tract; Z90.710 Acquired absence of both cervix and uterus; Z79.899 Other long term (current) drug therapy; Z91.040 Latex allergy status

== ENCOUNTER 2020-08-15 08:04 | Inpatient (IN) | payer OTHER ==
[2020-08-15] VITALS (8 sets, daily range): BP systolic 134–177; BP diastolic 70–97
[~2020-08-15] VITALS: Ht 172.7 cm; Wt 93.0 kg
[~2020-08-15 08:04] MED LIST changes: +COLACE 100 MG100 MG PO; +COQ-1030 MG PO; +ELIQUIS5 MG PO; +FLAGYL500 M1 PO; +OMEPRAZOLE 20 M20 M1 PO; +ONDANSETRON HCL4 M2 PO; +OZEMPIC1 MG/0.71 SUBQ; +PACERONE 200 M200 M1 PO; +SENOKOT8.6 MG PO; +TORADOL 10 MG T10 MG PO; +VITAMIN B125000 MCG PO; +VITAMIN D-40010 MCG PO
[2020-08-15 09:00] LABS: HEMATOCRIT 43.7 % (37.0-47.0); HEMOGLOBIN 14.5 gm/dL (12.0-15.0)
--- NOTE | 2020-08-15 18:59 | NUR ---
PT ADMIITED TO 441 FROM SURGERY, ALERT AND ORIENTED X4, DENIES CHEST PAIN, NAUSEA AND VOMITTING. DERMABON LAP SITE INTACT, CLEAN AND DRY,NO SIGNS OF BLEEDING. IV PAIN MED GIVEN PER ORDER. RUIZ CATHTER IN PLACE, PATENT ND SECURED. ASSESSMENT AND ADMISSION COMPLETED PER ORDER. SCD'S ON LEGS, FALL [id number] IN PLACE. VITALS SIGNS TAKEN PER ORDER.ON 2L OF OXYGEN FOR COMFORT, NO SIGNS OF DISTESS NOTED. DENIES ANY OTHERS NEEDS WILL CONTINUE TO MONITOR
--- NOTE | 2020-08-16 04:00 | NUR ---
PT ALERT AND ORIENTED. S/P LAP SIGMOID COLECTOMY, LAPSITES X 4 WITH DERMABAND-LOOK OKAY. PT HAD RUIZ TO D/D, GOOD U/O. SARA DC/THIS AM AT ABOUT 0630. SCDS IN PLACE ANTONIO SMITH.IVF AND ABTS GIVEN. AFEBRILE. TOLERATING CLR LIQUIDS.BP STABLE. GIVEN DIULADID PRN AT THE START OF SHIFT AND PT DID NOT LIKE HOW IT MADE HER FEEL-ADVISED TO AVOID IT-REPORT GIVEN TO ONCOMING NURSE. ANTONIO SMITH PT DID NOT REQUIRE ANY EXTRA PAIN MEDS.
[2020-08-16 05:28] LABS: HEMATOCRIT 33.6 % (37.0-47.0); MCH 32.7 pg (26.0-34.0); MCHC 33.9 g/dL (28.0-37.0); MCV 96.6 fL (80.0-100.0); RBC 3.48 mil/uL (4.20-5.00); RDW 13.9 % (10.5-14.5); WBC 7.8 thou/uL (4.0-11.0)
[2020-08-16 05:34] LABS: HEMOGLOBIN 11.4 gm/dL (12.0-15.0)
[2020-08-16 05:46] LABS: CALCIUM 7.9 mg/dL (8.5-10.1); CREATININE 1.2 mg/dL (0.6-1.0); POTASSIUM 4.5 mmol/L (3.5-5.1)
[2020-08-16 08:30] VITALS: BP 109/44
--- NOTE | 2020-08-16 09:04 | NUR ---
ASSESSMENT: CM REVIEWED CHART AND SPOKE WITH PATIENT. PT IS ALERT AND ORIENTED X4. PT WAS ADMITTED DUE TO LAP COLECTOMY. PT REPORTS THAT SHE LIVES IN A HOUSE WITH HER . PT REPORTS THAT SHE HAS NO STEPS TO ENTER OR ONCE INSIDE. PT REPORTS HAVING A CANE AND WALKER BUT NORMALLY USES THE WALKER FOR AMBULATION. PT STATES THEY HAVE A GRAB BAR IN THE SHOWER AND A SHOWER CHAIR. PT REPORTS SHE HAS HAD HH IN THE PAST BUT UNSURE THE AGENCY AND STATES IT WAS A WASTE OF TIME AND SHE IS NOT INTERESTED IN HH AGAIN. PT REPORTS SHE HAS BEEN TO A SNF IN [place] BY [facility] BUT CANNOT RECALL THE NAME OF FACILITY. CM DISCUSSED ROLE. PT STATES SHE ANTICIPATES GOING BACK HOME WITH HER WITH NO NEEDS. CM WILL CONTINUE TO FOLLOW TO ASSIST NEEDED.
--- NOTE | 2020-08-16 09:30 | O ---
[facility] [place] [address] OPERATIVE REPORT Name: FRANCINE TORRES Room #: 441-P ADM IN M.R.#: [id number] Admission: 08/15/20 Attend Phys: Wu Main MD, Discharge: Date of : 46 Report #: [id number] THIS REPORT FOR: cc: Aime Houston MD, Stanley P. MD Soliman,Wu Wu MD [facility] DOC #: [id number] Wu Main MD DATE OF SERVICE: 08/15/2020 PREOPERATIVE DIAGNOSIS: 1. Chronic recurrent sigmoid diverticulitis with ulcerations. 2. Previous hysterectomy with suspected intra-abdominal adhesions. POSTOPERATIVE DIAGNOSIS: 1. Chronic recurrent sigmoid diverticulitis with ulcerations. 2. Previous hysterectomy with low pelvic adhesions. PROCEDURES PERFORMED: 1. Laparoscopic sigmoid colectomy with low anterior resection. 2. Laparoscopic mobilization of splenic flexure. SURGEON: Wu Main MD CHIEF CLINICAL OFFICER: EDMAR Chaparro. ANESTHESIA: General endotracheal anesthesia. ESTIMATED BLOOD LOSS: Minimal (less than 20 mL). COMPLICATIONS: None appreciated. SPECIMEN: Sigmoid colon to pathology with the open end being proximal. INDICATIONS: The patient is a 70-year-old female who has had several bouts of left lower quadrant abdominal pain and sigmoid diverticulitis, who underwent colonoscopy showing marked diverticulosis with chronic scarring and ulcerations, suspected to be from diverticulitis as well as possible ischemic colitis. After a thorough consultation with the patient and obtaining cardiac and primary care clearance to proceed, indications was for the above-mentioned procedures today. DESCRIPTION OF PROCEDURE: After explaining the risks, benefits and alternatives of the procedure with the patient in detail in the preoperative holding area and obtaining consent, the patient was brought to the operating room and placed supine on the operating room table. After conducting a thorough timeout procedure, verifying correct patient and procedure, the patient was given [facility] [address] [place] [address] OPERATIVE REPORT Name: FRANCINE TORRES Room #: 441-P [facility] IN [facility].#: [id number] Admission: 08/15/20 Attend Phys: Wu Main MD, Discharge: Date of : 46 Report #: [id number] general endotracheal anesthesia. Once adequate anesthesia was obtained, her SCDs were hooked up to the pneumatic compression device, the Degroot catheter was placed and her abdomen was prepped and draped in the standard surgical sterile fashion. She was placed in low lithotomy position with her legs in the Yellofin stirrups. A 5 mL of 0.5% Marcaine with epinephrine were used to anesthetize the skin, 2 cm cephalad to the umbilicus and 2 cm to the patient's right. A #15 bladed scalpel was used to create a small skin yoan at this location. A 5 mm Visiport was placed over 0-degree 5 mm laparoscope and was introduced through this incision site. Once intra-abdominal placement was verified visually, the obturator for the trocar and laparoscope were both removed and the abdomen was insufflated to 15 mmHg using carbon dioxide gas. The laparoscope was changed to a 5 mm 30-degree laparoscope, which was reintroduced through this trocar. The entire abdomen was evaluated to ensure no injury upon entry. We immediately identified adhesions in the low pelvis as well as the sigmoid colon plastered to both the anterior and left lower pelvic sidewalls. I was able to place an additional 5 mm port in the left flank lateral to the initially placed trocar approximately 5 cm to the left of the umbilicus, as well as a 12 mm port in the right lower quadrant. Both additional trocars were placed under direct vision after anesthetizing the skin at each location with 5 mL of 0.5% Marcaine with epinephrine. I created appropriately sized skin nicks using #15 bladed scalpel. The patient was now placed in steep Trendelenburg position with the left side elevated, and I proceeded to utilize the articulating EnSeal laparoscopic advance energy device to take down a multitude of adhesions in the low pelvis. EndoShears were also utilized, as any time we were near bowel, cold dissection was undertaken to prevent injury from thermal spread. Once I had taken down some of these adhesions along the right pelvic sidewall, I was able to identify a markedly tortuous and redundant sigmoid colon plastered down in the pelvis. I was able to free the right lateral adhesions. The colon was now reflected to the patient's right side and I proceeded to mobilize the colon along the white line of Toldt, which led me inferiorly to the gnarled up sigmoid colon. I stayed right along the sigmoid colon, so as not to injure the ureter and proceeded to continue dissection until I mobilized the entire sigmoid colon, which again was extremely redundant. Evaluation of the colon itself showed that even the superior rectum appeared chronically inflamed, thickened and woody. At the location of the mid rectal location, the tissues were soft and normal and this was our location of transection. I had proceeded to mobilize the rectum along the lateral rectal sidewalls, and I was able to elevate the rectum and create a window in the mesorectum with the articulating EnSeal device, staying well away from the rectal wall. I now utilized a 60 mm [place] stapler with a blue load, which was entered into the abdomen through the 12 mm port. One blade of the stapler was passed through the window in the mesorectum. It was clamped and fired completely transecting the rectum at its healthy location. The proximal staple line was now elevated, and I proceeded to take down the mesentery in a proximal fashion using the articulating EnSeal device for hemostasis, and again, we stayed well away from the ureter at all times with the [facility] [address] [place] [address] OPERATIVE REPORT Name: FRANCINE TORRES Room #: 441-P ADM IN M.R.#: [id number] Admission: 08/15/20 Attend Phys: Wu Main MD, Discharge: Date of : 46 Report #: [id number] urine running clear throughout. Once I had dissected proximally all the way to the level of the obviously diseased colon, evaluation was performed to see if this would reach low in the pelvis. I elected to proceed to dissect even further cephalad up the white line of Toldt around the splenic flexure to enable significant laxity to arrive low in the pelvis without tension. I now proceeded to identify an extraction site in the low midline and at this location, I proceeded to create a 4 cm transverse skin incision using a #10 bladed scalpel. Electrocautery was used to dissect this down through skin and subcutaneous tissues to arrive upon the fascia, which was scored transversely, revealing the rectus muscles, which were vertically and I was able to enter into the abdomen with electrocautery through the peritoneum. I then proceeded to open the entire peritoneal lining and placed an Victoriano wound retractor. I was then able to deliver the diseased colon through this with a Ev clamp and elevated into the bed of the wound. The appropriate site of transection was identified and the auto pursestring suture device was used to clamp on the bowel at this location and the bowel was removed with curved Philip scissors and passed off the field. The auto pursestring suture device was removed and the open end of bowel was elevated between 3 Allis clamps in standard fashion. I proceeded to size the bowel. This showed that the appropriate size device was a 29 EEA stapler. The 29 EEA anvil was now placed in the open end of bowel and the pursestring suture from the auto pursestring device was tied down around the spike of the anvil. The end of bowel was cleaned off with a hemostat and electrocautery in standard fashion showing completely healthy bowel at this juncture. This was placed back in the abdomen, and a cap was placed on the Victoriano retractor and the abdomen was fully reinsufflated. We now proceeded to dilate the rectal stump using the EEA sizers from below. This was done with some difficulty, but eventually, we were able to fully dilate with the 29 EEA sizer and then the stapler was placed in the rectum and the spike was delivered out the end of the rectal stump. The spike was now mated to the anvil and ratcheted down ensuring no twisting to the bowel. Once again, there was plenty of laxity and it was not under tension. The stapler was fired and removed showing 2 complete anastomotic doughnuts. On the antimesenteric aspect of the bowel, there was one area of questionable denuded serosa at the anastomosis and as such, 3-0 PDS suture was placed in the abdomen and used to take full thickness bites of the anastomosis to ensure no leak and then additional Lembert sutures were placed at this location as well as 12 mL of Tisseel on the DuploSpray device. Once dry, the pelvis was filled with normal saline. The bowel was clamped proximal to the anastomosis, and using the rigid proctoscope, we were able to fully insufflate across the anastomosis, which was submersed under normal saline showing no evidence of bubbling. We had excellent tidaling and on 3 occasions had no leak seen. The saline was now fully suctioned out and we had complete hemostasis. Photodocumentation of all the above was taken and provided to the patient and the permanent medical record. I now closed the 12 mm fascial incision using 0 PDS suture on the Freddy-Fernie suture passer device and tied this down under direct vision to ensure I did not catch a loop [address] [address] OPERATIVE REPORT Name: FRANCINE TORRES Room #: 441-P [facility] IN .R.#: [id number] Admission: 08/15/20 Attend Phys: Wu Main MD, Discharge: Date of : 46 Report #: [id number] of bowel or omentum in the suture repair. The abdomen was fully desufflated. All trocars were removed under direct vision, as was the wound protector. I then closed the peritoneum vertically using 3-0 PDS suture in standard running fashion. I then proceeded to close the fascia transversely using #1 PDS suture in standard running fashion. A 4-0 Monocryl was now used in a standard subcuticular fashion for all skin incisions and Dermabond glue was applied to all skin wounds. At the end of the procedure, all instrument, needle and sponge counts were correct. The patient tolerated the procedure without incident, was awakened in the operating room, and transitioned to the recovery room in stable condition with no apparent complications. Wu Main MD MQS/NIVIA/ELSA <ELECTRONICALLY SIGNED> By: Wu Main MD, FACS 08/16/20 0930 [id number] [id number] Wu Main MD, FACS /nt
[2020-08-16 16:21] VITALS: BP 113/46
--- NOTE | 2020-08-16 17:33 | NUR ---
ASSUMED PT CARE AROUND 0715. PT ALERT X ORIENTED X4. ON ROOM AIR. VSS. HAS PACEMAKER. IV RT HAND WITH D5NS RUNNING AT 100MLS/HR AND IV LF HAND SALINE LOCKED.ONE PERSON ASSIST TO BATHROOM. FALL PRECAUTION IN PLACE. WILL CALL APPROPRIATELY. LAP SITES LOOKS GOOD. PAIN CONTROLLED BY PAIN MEDS, PT TAKING HYDROCODONE FOR PAIN. WILL CONTINUE TO MONITOR.
[2020-08-16 19:50] VITALS: BP 119/53
--- NOTE | 2020-08-16 23:32 | NUR ---
ASSUMED PT CARE AT AROUND 1915 HRS.PT ALERT AND ORIENTED X 4. SHE REPORTS FEELING ALOT BETTER. PAIN IN HER LAP SITES IS VERY MILD-SHE IS ONLY NEEDING IBUPROFEN. SHE GETS UP WELL AND WALKS TO THE BATHROOM. VOIDING OKAY. REPORTS BM EARLIER IN THE DAY. AFEBRILE. TOLERATING FULL LIQUID DIET WITH NO COMPLAINS OF NAUSEA OR VOMITING. LAP SITES LOOK OKAY. NO FURTHER CONCERNS AT THIS TIME, SHE IS PROGRESSING TOWARDS CARE GOALS.
[2020-08-17 08:36] VITALS: BP 132/54
[2020-08-17 16:07] VITALS: BP 132/54
--- NOTE | 2020-08-17 16:29 | NUR ---
RN went over all teaching, all questions answered, IV out, and wheeled out in wheelchair to home.
--- NOTE | 2020-08-19 19:06 | PATH ---
[facility] [place] [address] PATHOLOGY RPT PROCEDURE Name: FRANCINE SHAFFER Room #: 441-P DIS IN M.R.#: [id number] Admission: 08/15/20 Date of : 46 Discharge: 08/17/20 Report #: [id number] Path Case #: [id number] [facility] Accession Number: [id number] . 01 Material submitted: . sigmoid colon - SIGMOID COLON . 01 Clinical history: . LAPAROSCOPIC COLECTOMY (+++) SIGMOID COLON ULCER . 02 Diagnosis: Large intestine, sigmoid colon, colectomy: - Acute diverticulitis. - Background of diverticulosis. - Margins viable and unremarkable. - Negative for dysplasia or malignancy. 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 02 Electronically signed: . Valerie Valerio MD, Pathologist NPI- [id number] . 01 Gross description: . Received in formalin labeled "Francine Shaffer and sigmoid colon". Received is a staple oriented sigmoid colon segment measures 19.0 cm in length, 4.5-5.5 cm in its circumference, with attached adipose that extends 2.0 cm, and weighs 272 g. The stapled end margin is inked blue the open in the margin is inked green. The serosa is pink-delgadillo. The mucosa is pink-delgadillo with multiple diverticuli ranging from 0.3-1.0 cm. Sectioning reveals no polyps, perforations, or any other grossly apparent lesions. The specimen is representatively submitted in cassettes A1 through A6. A1-opened end margin (blue ink) A2-stapled end margin (green ink) A3 and A4-diverticuli representations A5-opened end uninvolved mucosa A6-stapled and uninvolved mucosa (BLJ; 08/16/2020) BLJ/BLJ 08/16/2020 1632 Local . 02 Pathologist provided ICD-10: K57.32 . 02 CPT . 656588 Specimen Comment: A courtesy copy of this report has been sent to [phone], [place] [address] PATHOLOGY RPT PROCEDURE Name: FRANCINE SHAFFER Room #: 441-P DIS IN M.R.#: [id number] Admission: 08/15/20 Date of : 46 Discharge: 08/17/20 Report #: [id number] Path Case #: [id number] Specimen Comment: [id number] Specimen Comment: Report sent to / DR SALGADO Performed at: [address], [place] [id number] MD Riley Lomeli MD Phone: [phone] Performed at: [address] [id number] MD Valerie Valerio MD Phone: [phone]
== END 2020-08-17 16:08 | disposition home or self-care (01) | DRG 330 ==
LOC: 4S 08:04 → TBA 08:04 → PRE 12:55 → 4S 16:17
PROVIDERS: ADMIT Surgery; ATTEND Surgery
PROC: 0DNL4ZZ Release Transverse Colon, Percutaneous Endoscopic Approach (ICD-10-PCS; principal; 2020-08-15)
PROC: 0DBN4ZZ Excision of Sigmoid Colon, Percutaneous Endoscopic Approach (ICD-10-PCS; principal; 2020-08-15)
DX: K57.32 Diverticulitis of large intestine without perforation or abscess without bleeding (principal); K63.3 Ulcer of intestine; E11.9 Type 2 diabetes mellitus without complications; K59.00 Constipation, unspecified; E78.5 Hyperlipidemia, unspecified; G43.909 Migraine, unspecified, not intractable, without status migrainosus; Z90.710 Acquired absence of both cervix and uterus; Z95.0 Presence of cardiac pacemaker; Z91.040 Latex allergy status
CPT/HCPCS: 10102; 50010; 50101; 50221; 50290; 50386; 50455; 50525; 50555; 50558; 50740; 50804; 51436; 51489; 52182; 52265; 53307; 54022; 54118; 56462; 56525; 56526; 56527; 56753; 57092; 57103; 58574; 58637; 62110; 62900; 70005